=== PATIENT | male | born 1970 | race Caucasian/White ===

== ENCOUNTER → 2017-09-02 | Day surgery (SDC) | payer BC ==
[~2017-09-02] MED LIST: BUPIVACAINE HCL PF 0.5% 10 ML VIAL ONE; LIDOCAINE HCL 1% 50 ML VIAL ONE; MIDAZOLAM HCL 2 MG/2 ML VIAL ONE; NEOMYCIN/POLYMYXIN/BACITRACIN OINT 15 GM TUBE ONE; ONDANSETRON HCL 4 MG/2 ML VIAL IV PUSH ONE; PROPOFOL 200 MG/20 ML AMP IV ONE; SODIUM CHLOR 0.9% 1000 ML INJ 1,000 ML IV ONE; SODIUM CHLOR 0.9% 250 ML INJ 250 ML IV ONE; VANCOMYCIN HCL 1000 MG VIAL ONE; Z.0.NO CURRENT MEDS
--- NOTE | 2017-09-02 10:41 | TN ---
cc: CARMITA DOUGLAS M.D. DATE OF SURGERY September 02, 2017 PREOPERATIVE DIAGNOSIS Scrotal mass (ICD-10 code N50.9). POSTOPERATIVE DIAGNOSIS Scrotal mass (ICD-10 code N50.9). PROCEDURE Excision of scrotal mass (CPT code 23231). INDICATIONS Mr. Aguilar is a 47-year-old gentleman with a painless growing subcutaneous scrotal mass who presents now for excision. Preoperative ultrasound shows no evidence of communication with the testicle on that left side or epididymis or cord. The findings are a little more than a 4-cm subcutaneous mass which appeared to be within a nice capsule and upon entering the capsule some sebum extruded consistent with a sebaceous cyst. PROCEDURE FOLLOWS The procedure as well as risks and benefits were explained to the patient. Informed consent was obtained. The patient was taken to the major operative theater where he was placed in supine position. The patient was identified as well as the operative site. A universal time-out was performed in standard fashion. At this time general anesthetic and prophylactic intravenous antibiotics administered consisting of 1 gram of vancomycin due to PENICILLIN ALLERGY. After adequate anesthetic he was placed in low dorsal lithotomy position. At this time genitalia and groin were prepped and draped in the usual sterile fashion in supine position. At this time 1% lidocaine plain and 0.25% Marcaine plain were injected over an area over the palpable mass in the subcutaneous and skin area. Then using 11 blade scalpel the skin was incised with an approximately 6-cm transverse incision. This was taken down through the subcutaneous layers and dartos fascia using pinpoint electrocautery. The mass was identified and then meticulously dissected out and sent for final pathological evaluation. The wound was then irrigated and meticulous hemostasis was achieved with pinpoint cautery. The dartos was closed with an interrupted 3-0 chromic and the skin was closed with a 3-0 Vicryl interrupted vertical mattress suture. Fluffs, dry dressings, scrotal support were placed. The patient tolerated the procedure well, emerged from anesthetic without difficulty and was transferred to the recovery room in stable condition to be discharged home when criteria is met. There were no obvious complications. MD TRISH Banuelos/NATE /9:58 AM /10:16 AM
== END | disposition home or self-care (01) ==
LOC: ESDC 07:03
PROVIDERS: ATTEND Urology
DX: L72.0 Epidermal cyst (principal)
CPT/HCPCS: 00920; 11426; 88304; J2250; J2405; J3010; J3370; J7030; J7050; 88305